=== PATIENT | male | born 1970 ===

== ENCOUNTER 2020-06-26 07:25 | Day surgery (SDC) | payer BC ==
[~2020-06-26] VITALS: Ht 195.6 cm; Wt 98.0 kg
[2020-06-26] MEDS ORDERED: SODIUM CHLORIDE 0.9% 1,000 ML IV SCH (08:00)
[2020-06-26] MEDS ORDERED: LORA-446 PO (08:04)
[2020-06-26] MEDS ORDERED: ROSU20TA2 PO (08:04)
[2020-06-26] MEDS ORDERED: DILT240C77 PO (08:04)
[2020-06-26 08:17] LABS: BASOPHILS % (AUTO) 1 % (0-1); EOSINOPHILS % (AUTO) 2 % (1-7); LYMPHOCYTES % (AUTO) 35 % (22-44); MEAN CORPUSCULAR HEMOGLOBIN 29.9 pg (27.5-34.5); MEAN CORPUSCULAR HGB CONC 33.4 g/dL (33.2-36.2); MEAN PLATELET VOLUME 9.5 fL (7.4-10.4); MONOCYTES % (AUTO) 7 % (2-9); NEUTROPHILS % (AUTO) 55 % (42-75); PLATELET COUNT 154 x10^3/uL (130-400); RED BLOOD COUNT 5.71 x10^6/uL (4.38-5.82); RED CELL DISTRIBUTION WIDTH 13.8 % (9.4-14.8)
[2020-06-26 08:18] LABS: MD NO
[2020-06-26 08:30] LABS: ANION GAP 5 mmol/L (5-15); CALCIUM 9.1 mg/dL (8.5-10.1); CHLORIDE 113 mmol/L (98-107)
[2020-06-26] MEDS ORDERED: PLEASE ENTER ALLERGIES MC SCH (08:30)
[2020-06-26 08:32] LABS: CREATININE 1.16 mg/dL (0.7-1.3)
[2020-06-26] MEDS ORDERED: MIDAZOLAM 1 MG/ML, 2ML ONE ×3 (08:35→10:55)
[2020-06-26] MEDS ORDERED: FENTANYL PF 100 MCG/2ML ONE ×2 (08:35→10:55)
[2020-06-26] MEDS ORDERED: ISOPROTERENOL 0.2MG/ML, 5ML ONE (08:35)
[2020-06-26] MEDS ORDERED: LIDOCAINE 2%, 20ML ONE (08:35)
[2020-06-26] MEDS ORDERED: ADENOSINE 6 MG/2 ML ONE (08:35)
[2020-06-26] MEDS ORDERED: LORazepam 1MG TABLET PO PRN (12:00)
[2020-06-26] MEDS ORDERED: ACETAMINOPHEN 325 MG TABLET PO PRN (12:00)
[2020-06-26] MEDS ORDERED: ATORVASTATIN 80 MG TABLET PO SCH (21:00)
== END 2020-06-26 15:50 | disposition home or self-care (01) ==
LOC: CACL 07:25 → ORIP 11:32 → UNDOADMOB 11:32
PROVIDERS: ATTEND Internal Medicine Cardiovascular Disease
DX: I47.1 Supraventricular tachycardia (principal); I48.92 Unspecified atrial flutter; I48.91 Unspecified atrial fibrillation; E78.5 Hyperlipidemia, unspecified; Z79.899 Other long term (current) drug therapy
CPT/HCPCS: 36415; 71046; 80048; 85025; 93613; 93621; 93623; 93653; 93655; 99156; 99157; C1730; C1732; C1766; C1894; C2630; J0153; J2250; J3010

== ENCOUNTER 2020-06-28 20:27 | Observation (INO) | payer BC ==
[~2020-06-28] VITALS: Ht 185.4 cm; Wt 100.6 kg
[~2020-06-28 20:27] MED LIST: DILT240C77 PO; LORA-446 PO; ROSU20TA2 PO
[2020-06-28] MEDS ORDERED: LORazepam 2 MG/ML, 1ML ONE (21:23)
[2020-06-28] MEDS ORDERED: LORazepam 2 MG/ML, 1ML IVPush ONE (21:30)
--- NOTE | 2020-06-28 21:50 | NUR ---
pt resting comfortably in [place], provided sandwich and water per request. ok per erp. pt on all monitors, statews feeling less anxious at this time.
[2020-06-28 22:43] LABS: BASOPHILS % (AUTO) 0 % (0-1); EOSINOPHILS % (AUTO) 1 % (1-7); LYMPHOCYTES % (AUTO) 24 % (22-44); MD NO; MEAN CORPUSCULAR HEMOGLOBIN 30.2 pg (27.5-34.5); MEAN CORPUSCULAR HGB CONC 33.8 g/dL (33.2-36.2); MEAN PLATELET VOLUME 9.2 fL (7.4-10.4); MONOCYTES % (AUTO) 6 % (2-9); NEUTROPHILS % (AUTO) 69 % (42-75); PLATELET COUNT 137 x10^3/uL (130-400); RED CELL DISTRIBUTION WIDTH 13.4 % (9.4-14.8)
[2020-06-28 22:50] LABS: ALBUMIN 3.6 g/dL (3.4-5.0); ANION GAP 8 mmol/L (5-15); CALCIUM 9.2 mg/dL (8.5-10.1); CHLORIDE 107 mmol/L (98-107); CREATININE 1.04 mg/dL (0.7-1.3)
[2020-06-28] MEDS ORDERED: ASPIRIN 81 MG TABLET CHEW ONE (23:27)
[2020-06-28] MEDS ORDERED: ASPIRIN 81 MG TABLET CHEW PO ONE (23:30)
--- NOTE | 2020-06-28 23:31 | NUR ---
PT'S TROP WAS 0.27 AT [facility] AND 1.2 HERE. EKG WAS NEGATIVE FOR STEMI, CARIOLOGY PAGED. PT DENIES CHEST PAIN, SOB, OR ANY DISCOMFORT. PT STATES HE HAS NOT HAD ANY DISCOMFORT ALL DAY. PT STATES FEELING BETTER AND IS RESTING COMFORTABLY IN [facility] AT THIS TIME. MONITORS IN PLACE, CALL LIGHT WITHIN REACH
[2020-06-28] MEDS ORDERED: PLEASE ENTER ALLERGIES MC SCH (23:45)
--- NOTE | 2020-06-29 00:27 | NUR ---
REPORT GIVEN TO CORIE SILVA. PT AWARE OF POC, NO NEEDS OR DISCOMFORT AT THIS TIME.
[2020-06-29 00:53] VITALS: BP 125/82
[2020-06-29] MEDS ORDERED: ACETAMINOPHEN 325 MG TABLET PO PRN (01:00)
[2020-06-29] MEDS ORDERED: MELATONIN 5 MG TABLET PO PRN (01:00)
[2020-06-29] MEDS ORDERED: HYDROcodone/APAP 5/325 TABLET PO PRN (01:00)
[2020-06-29] MEDS ORDERED: ONDANSETRON 2MG/ML, 2ML IVPush PRN ×2 (01:00)
[2020-06-29] MEDS: HEPARIN 5,000 UNITS/ML, 1ML SQ SCH ×2 (01:28→09:05)
[2020-06-29] MEDS ORDERED: LORazepam 1MG TABLET PO PRN (02:00)
[2020-06-29 06:35] LABS: ALANINE AMINOTRANSFERASE 27 U/L (12-78); ALBUMIN 3.4 g/dL (3.4-5.0); ANION GAP 8 mmol/L (5-15); CALCIUM 9.2 mg/dL (8.5-10.1); CHLORIDE 110 mmol/L (98-107)
[2020-06-29 06:37] LABS: ALKALINE PHOSPHATASE 75 U/L (45-117); BILIRUBIN,TOTAL 0.3 mg/dL (0.2-1.0); TOTAL PROTEIN 6.8 g/dL (6.4-8.2)
[2020-06-29 06:42] VITALS: BP 133/86
[2020-06-29 12:28] LABS: TROPONIN I 0.816 ng/mL (0.000-0.045)
[2020-06-29 12:29] VITALS: BP 136/92
[2020-06-29] MEDS ORDERED: APIX5TAB PO (13:59)
[2020-06-29] MEDS ORDERED: ATORVASTATIN 80 MG TABLET PO SCH (21:00)
== END 2020-06-29 15:57 | disposition home or self-care (01) ==
LOC: ED 20:53 → INTOOBSV 23:52 → EDIP 23:52 → 5SO 06-29 00:42 → DCLOUNGE 06-29 15:47
PROVIDERS: ADMIT Internal Medicine; ATTEND Internal Medicine
DX: I49.9 Cardiac arrhythmia, unspecified (principal); I47.1 Supraventricular tachycardia; R79.89 Other specified abnormal findings of blood chemistry; I48.91 Unspecified atrial fibrillation; E78.5 Hyperlipidemia, unspecified; Z79.899 Other long term (current) drug therapy
CPT/HCPCS: 36415; 70551; 80048; 80053; 82040; 83036; 83735; 84100; 84443; 84484; 85025; 93005; 93306; 96372; 96374; 97161; 97165; 99291; G0378; J1644; J2060